=== PATIENT | male | born 1960 | race Two or more races ===

== ENCOUNTER 2019-06-21 09:03 | Emergency (ER) | payer OTHER ==
[~2019-06-21] VITALS: Ht 170.2 cm; Wt 68.0 kg
[2019-06-21 09:07] VITALS: BP 141/91
[2019-06-21 09:29] LABS: CALCIUM, SERUM 9.3 mg/dL (8.5-10.1); CREATININE 1.1 mg/dL (0.6-1.3); POTASSIUM 4.1 mmol/L (3.5-5.1)
[2019-06-21 09:32] LABS: APPEARANCE,URINE Clear (CLEAR); BILIRUBIN,URINE SMALL (NEGATIVE); BLOOD, URINE Large Ery/uL (NEGATIVE); COLOR,URINE AMBER (YELLOW); KETONES,URINE Negative (NEGATIVE); LEUKOCYTE ESTERASE ,URINE Negative (NEGATIVE); NITRITE, URINE Negative (NEGATIVE); PH,URINE 8.5 (5.0-8.0); PROTEIN,URINE 100 mg/dl (NEGATIVE); UGLUCOSE Negative (NEGATIVE); UROBILINOGEN,URINE 0.2 EU/dL (0.2)
[2019-06-21 09:34] LABS: BACTERIA,URINE Rare /HPF (None Seen)
[2019-06-21 09:35] LABS: SQUAMOUS EPITHELIAL CELL,UR Rare /HPF (None Seen); URINE AMORPHOUS PHOSPHATES Rare /HPF (None Seen)
== END 2019-06-21 10:37 | disposition home or self-care (01) ==
LOC: ER 09:05
DX: N23 Unspecified renal colic (principal); L27.0 Generalized skin eruption due to drugs and medicaments taken internally; L40.50 Arthropathic psoriasis, unspecified; Z87.442 Personal history of urinary calculi; Z88.2 Allergy status to sulfonamides
CPT/HCPCS: 36415; 76770-TC; 80048-TC; 81000-TC